=== PATIENT | female | born 1990 | race Two or more races ===

== ENCOUNTER 2024-07-05 09:03 | Outpatient (CLI) | payer OTHER | END 2024-07-05 09:04 | disposition home or self-care (01) | LOC: PRENATAL 09:03 | PROVIDERS: ATTEND Obstetrics & Gynecology Maternal & Fetal Medicine | DX: O36.80X0 Pregnancy with inconclusive fetal viability, not applicable or unspecified (principal); Z36.82 Encounter for antenatal screening for nuchal translucency; O09.529 Supervision of elderly multigravida, unspecified trimester; Z3A.13 13 weeks gestation of pregnancy ==

== ENCOUNTER → 2024-08-27 15:15 | Outpatient (CLI) | payer OTHER | END | disposition home or self-care (01) | LOC: PRENATAL 15:15 | PROVIDERS: ATTEND Obstetrics & Gynecology Maternal & Fetal Medicine | DX: O44.00 Complete placenta previa NOS or without hemorrhage, unspecified trimester (principal); O09.529 Supervision of elderly multigravida, unspecified trimester; Z3A.21 21 weeks gestation of pregnancy ==

== ENCOUNTER → 2024-11-19 10:35 | Outpatient (CLI) | payer OTHER | END | disposition home or self-care (01) | LOC: PRENATAL 10:35 | PROVIDERS: ATTEND Obstetrics & Gynecology Maternal & Fetal Medicine | DX: O26.849 Uterine size-date discrepancy, unspecified trimester (principal); O36.8199 Decreased fetal movements, unspecified trimester, other fetus; O09.529 Supervision of elderly multigravida, unspecified trimester; O40.1XX0 Polyhydramnios, first trimester, not applicable or unspecified; O36.60X0 Maternal care for excessive fetal growth, unspecified trimester, not applicable or unspecified; Z3A.34 34 weeks gestation of pregnancy ==

== ENCOUNTER → 2024-12-14 08:35 | Outpatient (CLI) | payer OTHER | END | disposition home or self-care (01) | LOC: PRENATAL 08:35 | PROVIDERS: ATTEND Obstetrics & Gynecology Maternal & Fetal Medicine | DX: O26.849 Uterine size-date discrepancy, unspecified trimester (principal); O36.8199 Decreased fetal movements, unspecified trimester, other fetus; O09.529 Supervision of elderly multigravida, unspecified trimester; O40.1XX0 Polyhydramnios, first trimester, not applicable or unspecified; O36.60X0 Maternal care for excessive fetal growth, unspecified trimester, not applicable or unspecified; O24.419 Gestational diabetes mellitus in pregnancy, unspecified control; Z3A.37 37 weeks gestation of pregnancy ==

== ENCOUNTER 2024-12-24 07:45 | Inpatient (IN) | payer OTHER ==
[~2024-12-24] VITALS: Ht 152.4 cm; Wt 3.6 kg
[2024-12-24] MEDS ORDERED: PRENATE ELITE1 EAC2 PO (08:15)
[2024-12-24] MEDS ORDERED: MIRALAX17 GM PO (08:16)
[2024-12-24 08:38] LABS: HEMATOCRIT 39.8 % (36.0-45.00); HEMOGLOBIN 13.1 g/dL (12.0-15.00); MEAN CELL VOLUME 94.2 fL (80.00-100.00); MEAN CORPUSCULAR HEMOGLOBIN 30.9 pg (27.00-32.0); MEAN CORPUSCULAR HGB CONC 32.9 g/dl (32.0-36.0); PLATELET COUNT 225 K/uL (150-450); RED BLOOD COUNT 4.22 M/uL (4.00-6.00); RED CELL DISTRIBUTION WIDTH 14.5 % (11.5-14.5)
[2024-12-24 08:42] LABS: PH,URINE 6.5 (5.0-8.0); URINE APPEARANCE Clear; URINE BILIRRUBIN Negative (NEGATIVE); URINE BLOOD Negative; URINE COLOR Dark Yellow; URINE GLUCOSE Negative (NEGATIVE); URINE KETONE Negative (NEGATIVE); URINE LEUKOCYTE Negative; URINE NITRATE Negative; URINE PROTEIN Negative (NEGATIVE)
[2024-12-24 08:46] LABS: URINE BACTERIA 255.7 uL (0.0-1933); URINE EPITHELIAL CELLS 75.6 uL (0.0-38.8); URINE RBC 16.2 uL (0.0-20.8); URINE WBC 8.3 uL (0.0-23.2)
[2024-12-24 08:58] LABS: INR < 0.93; PARTIAL THROMBOPLASTIN TIME 25.6 SECONDS (22.0-34.0)
[2024-12-24 09:28] LABS: ALBUMIN 2.6 gm/dL (3.4-5.0); BILIRUBIN TOTAL 0.85 mg/dL (0.3-1.2); CALCIUM 9.4 mg/dL (8.5-10.1); CREATININE SERUM 0.72 mg/dL (0.55-1.02); GFR 91.65; GLOBULINA 3.5 G/DL (2.4-3.5); POTASSIUM 3.63 mEq/L (3.5-5.1); TOTAL PROTEIN 6.1 gm/dL (6.4-8.2)
[2024-12-24 09:30] LABS: URINE CAST 0.29 uL (0.0-1.40)
[2024-12-31 05:32] VITALS: BP 114/78; O2SAT 98
[2024-12-31] MEDS ORDERED: TERBUTALINE SULFATE 1 MG/ML AMPUL SUBCUTANEO STA (06:23)
[2024-12-31] MEDS ORDERED: RINGERS SOLUTION,LACTATED 1,000 ML IV SCH (06:30)
[2024-12-31 07:12] VITALS: BP 113/71
[2024-12-31] MEDS ORDERED: CEFAZOLIN SODIUM 1,000 MG VIAL IV SCH (07:30)
[2024-12-31 08:38] VITALS: BP 111/77
[2024-12-31] MEDS ORDERED: OXYTOCIN 10 UNITS/ML VIAL IV ONE (09:45)
[2024-12-31] MEDS ORDERED: MORPHINE SULFATE 4 MG/ML VIAL IV ONE ×2 (10:20→10:50)
[2024-12-31] MEDS ORDERED: MEPERIDINE HCL 25 MG/ML AMPUL IV ONE (11:20)
[2024-12-31 12:58] VITALS: BP 125/68
[2024-12-31] MEDS ORDERED: PROMETHAZINE HCL 50 MG/ML AMPUL IM PRN (15:00)
[2024-12-31] MEDS ORDERED: MEPERIDINE HCL/PF 50 MG/ML VIAL IM PRN (15:00)
[2024-12-31 16:00] VITALS: BP 117/64
[2024-12-31 23:08] VITALS: BP 104/68
[2025-01-01 02:32] LABS: HEMATOCRIT 38.9 % (36.0-45.00); HEMOGLOBIN 12.8 g/dL (12.0-15.00); MEAN CELL VOLUME 93.8 fL (80.00-100.00); MEAN CORPUSCULAR HEMOGLOBIN 30.9 pg (27.00-32.0); PLATELET COUNT 198 K/uL (150-450); RED BLOOD COUNT 4.14 M/uL (4.00-6.00); RED CELL DISTRIBUTION WIDTH 15.4 % (11.5-14.5)
[2025-01-01 02:45] LABS: ALBUMIN 2.2 gm/dL (3.4-5.0); BILIRUBIN TOTAL 0.84 mg/dL (0.3-1.2); CALCIUM 8.9 mg/dL (8.5-10.1); CREATININE SERUM 0.68 mg/dL (0.55-1.02); GFR 97.9; GLOBULINA 2.9 G/DL (2.4-3.5); POTASSIUM 4.88 mEq/L (3.5-5.1); TOTAL PROTEIN 5.1 gm/dL (6.4-8.2)
[2025-01-01 08:10] VITALS: BP 112/71
[2025-01-01] MEDS ORDERED: OxyCODONE HCL/APAP UD (PERCOCET) PO PRN (10:45)
[2025-01-01] MEDS ORDERED: SIMETHICONE 125 MG CAPSULE PO SCH (13:00)
[2025-01-01] MEDS ORDERED: DOCUSATE SODIUM 100MG CAP PO SCH (17:00)
[2025-01-01 17:52] VITALS: BP 112/73
[2025-01-02 00:30] VITALS: BP 94/63
[2025-01-02 11:21] VITALS: BP 109/73
[2025-01-02 16:14] VITALS: BP 111/68
[2025-01-03 00:13] VITALS: BP 106/69
[2025-01-03] MEDS ORDERED: IBUPROFEN800 MG PO (07:53)
[2025-01-03 08:08] VITALS: BP 113/75
== END 2025-01-03 10:56 | disposition home or self-care (01) | DRG 788 ==
LOC: OB/GYN 12-31 05:48 → LDR 12-31 05:48 → OB/GYN 12-31 07:00 → O/R 12-31 07:50 → OB/GYN 12-31 09:21
PROVIDERS: ADMIT Specialist; ATTEND Specialist
PROC: 4A1HXCZ Monitoring of Products of Conception, Cardiac Rate, External Approach (ICD-10-PCS; 2024-12-31)
PROC: 10D00Z1 Extraction of Products of Conception, Low, Open Approach (ICD-10-PCS; principal; 2024-12-31 07:00)
DX: O36.63X0 Maternal care for excessive fetal growth, third trimester, not applicable or unspecified (principal); Z3A.38 38 weeks gestation of pregnancy; Z37.0 Single live birth